=== PATIENT | female | born 1980 | race Caucasian/White ===

== ENCOUNTER 2023-09-05 14:29 | Emergency (ER) | payer SELFPAY ==
[2023-09-05 14:36] VITALS: BP 137/83; PULSE 77; RESP 18; TEMP 36.8; O2SAT 100
--- NOTE | 2023-09-05 15:46 | ED.GENADULT ---
HPI - General Adult General Chief complaint: Unspecified Stated complaint: hand injuries? Time Seen by Provider: 09/05/23 15:05 Source: patient Mode of arrival: ambulatory Limitations: no limitations History of Present Illness HPI narrative: Patient is a 43 y/o female who presents to the ED with multiple complaints. Patient reports she was [place] and sustained abrasions to bilateral hands from thorns and branches. She states when she woke up this morning with swelling in her bernabe hands. She took Tylenol earlier today and does note that the swelling has seemed to improve. She also reports having bug bites to bilateral arms and nausea. Denies itching, vomiting, abdominal pain, fevers, drainage or wounds. Related Data Allergies Allergy/AdvReac Type Severity Reaction Status Date / Time tramadol AdvReac Anxiety Verified 09/05/23 14:30 Review of Systems Review of Systems: CONSTITUTIONAL: Denies fever, chills, or sweats. CARDIOVASCULAR: Denies chest pain. RESPIRATORY: Denies dyspnea. GASTROINTESTINAL: See HPI. SKIN: See HPI. MUSCULOSKELETAL: See HPI. NEUROLOGIC: Denies headache, numbness, or weakness. All systems reviewed & are unremarkable except as noted in HPI and below Exam Narrative: GENERAL: Well appearing, well-nourished, non-toxic, in no acute distress. HEAD: Normocephalic, atraumatic. NECK: Supple. No adenopathy, no masses. RESPIRATORY: Airway patent, respirations nonlabored. CARDIOVASCULAR: Regular rate and rhythm without murmurs, rubs, or gallops. Radial pulses 2+ and equal bilaterally. ABDOMINAL: Soft, no significant focal tenderness on palpation, nondistended. Normoactive BS. MUSCULOSKELETAL: Moves all extremities. No gross deformities. Full ROM of bernabe hands, no swelling noted. SKIN: Warm, dry, normal color. No rashes. Scattered small abrasions to bilateral hands and wrists, no evidence for surrounding infection. No drainage from abrasions. Small circular papular insect bites to bilateral forearms, nonpruritic, no pustular lesions, no drainage, no streaking erythema. NEURO: A&O X3. Speech clear. Cranial nerves II-XII grossly intact. Steady gait. No ataxic movements. PSYCHIATRIC: Appropriate mood and affect. Normal interaction. Course Vital Signs Vital signs: Vital Signs Temperature 98.3 F 09/05/23 14:36 Pulse Rate 77 09/05/23 14:36 Respiratory Rate 18 09/05/23 14:36 Blood Pressure 137/83 09/05/23 14:36 Pulse Oximetry 100 09/05/23 14:36 Oxygen Delivery Room Air 09/05/23 14:36 Temperature 98.3 F 09/05/23 14:36 Pulse Rate 77 09/05/23 14:36 Respiratory Rate 18 09/05/23 14:36 Blood Pressure 137/83 09/05/23 14:36 Pulse Oximetry 100 09/05/23 14:36 Oxygen Delivery Room Air 09/05/23 14:36 Medical Decision Making MDM Narrative Medical decision making narrative: Patient present ED with abrasions to bilateral hands, bug bites, nausea. Vital stable. Patient no acute distress. No significant abdominal tenderness on exam to suggest need for imaging. No vomiting, significant abdominal pain reported. Tolerating PO. Abrasions do not appear infected on exam. Discussed wound care. No swelling noted by the time of my evaluation. Bug bites are nonspecific, patient was out the [place] yesterday. No target lesions/tick bites. No skin compromise. Denies significant pruritus. Will Rx zofran and a topical steroid cream for patient. Advised f/u with PCP. Given return precautions. D/C in stable condition. Medical Records Medical records reviewed: Yes I reviewed the external patient's medical records. Vital Signs Vital Signs: Vital Signs Temperature 98.3 F 09/05/23 14:36 Pulse Rate 77 09/05/23 14:36 Respiratory Rate 18 09/05/23 14:36 Blood Pressure 137/83 09/05/23 14:36 Pulse Oximetry 100 09/05/23 14:36 Oxygen Delivery Room Air 09/05/23 14:36 Temperature 98.3 F 09/05/23 14:36 Pulse Rate 77 09/05/23 14:36 Respira
[2023-09-05] MEDS: diphenhydrAMINE HCl CAP 25 MG CAPSULE PO (15:55)
[2023-09-05] MEDS: ONDANSETRON HCL ODT 4 MG TABLET PO (15:55)
== END 2023-09-05 17:20 | disposition home or self-care (01) ==
PROVIDERS: Emergency Provider Physician Assistant
DX: S60.512A Abrasion of left hand, initial encounter (principal); S60.511A Abrasion of right hand, initial encounter; S50.862A Insect bite (nonvenomous) of left forearm, initial encounter; S50.861A Insect bite (nonvenomous) of right forearm, initial encounter; R11.0 Nausea; W57.XXXA Bitten or stung by nonvenomous insect and other nonvenomous arthropods, initial encounter
CPT/HCPCS: 99283; A9270